=== PATIENT | male | born 1940 | race Two or more races ===

== ENCOUNTER 2016-08-12 11:56 | Inpatient (IN) | payer MEDICAID, OTHER ==
[~2016-08-12] VITALS: Ht 172.7 cm; Wt 91.7 kg
[~2016-08-12 11:56] MED LIST: ALLO100T PO; AML5T PO; ASPI81CH43 PO; CIPR-217 PO; CLO01T PO; CLOP75TA28 PO; GLIP-115 PO; OMEP20CA5 PO; PRAV20TA3 PO; PROP60CA8 PO; SODB650T PO
[2016-08-12] MEDS ORDERED: ONDANSETRON HCL 4 MG/2 ML VIAL IV ONE (12:30)
[2016-08-12] MEDS ORDERED: MORPHINE SULFATE 4 MG/ML SYRG IV ONE (12:30)
[2016-08-12 13:04] LABS: Basophils # (auto) 0 uL; Basophils % (auto) 0.5 % (0.0-2.0); Eosinophils # (auto) 0.3 uL; Eosinophils % (auto) 4.6 % (0.0-7.0); Hematocrit 35.6 % (41.0-53.0); Hemoglobin 11.7 g/dL (13.5-17.5); Lymphocytes # (auto) 1.6 uL; Lymphocytes % (auto) 26.6 % (10.0-50.0); Mean Corpuscular Hemoglobin 31.8 pg (28.0-32.0); Mean Corpuscular Hgb Conc. 32.8 g/dL (32.0-36.0); Mean Corpuscular Volume 96.9 fL (80.0-100.0); Mean Platelet Volume 8.3 fL (7.4-10.4); Monocytes # (auto) 0.7 uL; Monocytes % (auto) 12.2 % (0.0-12.0); Neutrophils # (auto) 3.4 uL; Neutrophils % (auto) 56.1 % (37.0-80.0); Platelet Count (auto) 133 10^3/uL (140-450); Red Cell Distribution Width 15.2 % (11.6-16.0)
[2016-08-12 13:16] LABS: INR 1.05 (0.9-1.15); Partial Thromboplastin Time 27.4 sec (22.64-33.71); Prothrombin Time 10.8 sec (9.37-12.3)
[2016-08-12 13:30] LABS: Albumin 3.5 g/dL (3.4-5.0); BUN/Creatinine Ratio 4.5; Bilirubin, Total 0.7 mg/dL (0.2-1.0); Calcium 8.1 mg/dL (8.5-10.1); Potassium 4.4 mmol/L (3.5-5.1); Total Protein 7.9 g/dL (6.4-8.2)
[2016-08-12 13:58] LABS: B-Type Natriuretic Peptide 1535.05 pg/mL (0-100); Temperature: 22.4 C (20.0-25.0)
[2016-08-12] MEDS ORDERED: ENOXAPARIN SOD 100 MG/1 ML SYRINGE SC ONE (14:30)
[2016-08-12] MEDS ORDERED: CLOPIDOGREL BISULFATE 75 MG TAB PO ONE (15:45)
[2016-08-12] MEDS ORDERED: METOPROLOL TARTRATE 50 MG TAB PO ONE (15:45)
[2016-08-12] MEDS ORDERED: NITROGLYCERIN 0.4 MG SL TAB SL PRN (15:45)
[2016-08-12] MEDS ORDERED: MORPHINE SULF INJ 2 MG/ML SYRINGE 1ML IV PRN (15:45)
[2016-08-12] MEDS ORDERED: ASPirin 81 mg TAB PO ONE (15:45)
[2016-08-12] MEDS ORDERED: PANTOPRAZOLE 40 MG TAB PO ONE (16:00)
[2016-08-12] MEDS ORDERED: ALLOPURINOL 100 MG TAB PO ONE (16:00)
[2016-08-12] MEDS ORDERED: B-COMPLEX W/ C & FOLIC ACID(NEPHROVITE TAB) PO ONE (16:00)
[2016-08-12] MEDS ORDERED: LABETALOL HCL 5 MG/ML 4ML SYRINGE IV PRN (16:00)
[2016-08-12] MEDS: cloNIDine HCL 0.1 MG TAB PO SCH (22:49)
[2016-08-12] MEDS: ATORVASTATIN 20 MG TAB PO SCH (22:49)
[2016-08-12] MEDS: METOPROLOL TARTRATE 50 MG TAB PO SCH (22:49)
[2016-08-13] VITALS (7 sets, daily range): BP systolic 123–155; BP diastolic 71–105
[2016-08-13 06:26] LABS: Cholesterol 112 mg/dL (<200); HDL Cholesterol 33 mg/dL (40-59); LDL Cholesterol 64 mg/dL (<100); Triglycerides 153 mg/dL (<150)
[2016-08-13] MEDS ORDERED: ENOXAPARIN SOD 100 MG/1 ML SYRINGE SC SCH (10:00)
[2016-08-13] MEDS ORDERED: B-COMPLEX W/ C & FOLIC ACID(NEPHROVITE TAB) PO SCH (10:00)
[2016-08-13] MEDS ORDERED: ASPirin 81 mg TAB PO SCH (10:00)
[2016-08-13] MEDS ORDERED: CLOPIDOGREL BISULFATE 75 MG TAB PO SCH (10:00)
[2016-08-13] MEDS ORDERED: PANTOPRAZOLE 40 MG TAB PO SCH (10:00)
[2016-08-13] MEDS ORDERED: ALLOPURINOL 100 MG TAB PO SCH (10:00)
[2016-08-13] MEDS: cloNIDine HCL 0.1 MG TAB PO SCH ×2 (10:16→21:47)
[2016-08-13] MEDS: METOPROLOL TARTRATE 50 MG TAB PO SCH ×2 (10:17→21:47)
[2016-08-13] MEDS ORDERED: LISINOPRIL 5 MG TAB PO ONE (12:45)
[2016-08-13] MEDS ORDERED: FUROSEMIDE 40 MG/4 ML VIAL IV ONE (17:30)
[2016-08-13] MEDS: ATORVASTATIN 20 MG TAB PO SCH (21:47)
[2016-08-14 05:00] VITALS: BP 123/76
[2016-08-14 08:28] VITALS: BP 149/86
[2016-08-14] MEDS ORDERED: LISINOPRIL 5 MG TAB PO SCH (10:00)
== END 2016-08-14 09:30 | disposition home or self-care (01) | DRG 280 ==
LOC: EDBD 11:56 → EDUNIT# 11:56 → ER 11:58 → TELE 11:59 → TELE-WESTW 23:51
PROVIDERS: ADMIT Internal Medicine; ATTEND Family Medicine
DX: I21.4 Non-ST elevation (NSTEMI) myocardial infarction (principal); N18.6 End stage renal disease; I50.33 Acute on chronic diastolic (congestive) heart failure; I13.2 Hypertensive heart and chronic kidney disease with heart failure and with stage 5 chronic kidney disease, or end stage renal disease; E11.22 Type 2 diabetes mellitus with diabetic chronic kidney disease; E78.5 Hyperlipidemia, unspecified; I25.10 Atherosclerotic heart disease of native coronary artery without angina pectoris; I48.91 Unspecified atrial fibrillation; F32.9 Major depressive disorder, single episode, unspecified; I48.0 Paroxysmal atrial fibrillation; I50.9 Heart failure, unspecified; Z95.1 Presence of aortocoronary bypass graft; Z99.2 Dependence on renal dialysis; Z95.5 Presence of coronary angioplasty implant and graft
CPT/HCPCS: 36415; 71010; 80053; 80061; 83036; 83880; 84443; 84484; 85025; 85610; 85730; 87081; 93005; 93306; 96372; 96374

== ENCOUNTER 2016-08-26 08:35 | Inpatient (IN) | payer OTHER ==
[~2016-08-26] VITALS: Ht 172.7 cm; Wt 89.6 kg
[~2016-08-26 08:35] MED LIST changes: -CIPR-217 PO; -GLIP-115 PO
[2016-08-26 09:32] LABS: Basophils # (auto) 0 uL; Basophils % (auto) 0.7 % (0.0-2.0); Eosinophils # (auto) 0.1 uL; Eosinophils % (auto) 2.1 % (0.0-7.0); Hematocrit 32.2 % (41.0-53.0); Hemoglobin 10.5 g/dL (13.5-17.5); Mean Corpuscular Hemoglobin 32.1 pg (28.0-32.0); Mean Corpuscular Hgb Conc. 32.5 g/dL (32.0-36.0); Mean Corpuscular Volume 98.6 fL (80.0-100.0); Mean Platelet Volume 8.9 fL (7.4-10.4); Monocytes # (auto) 0.7 uL; Monocytes % (auto) 11.7 % (0.0-12.0); Neutrophils # (auto) 3.4 uL; Neutrophils % (auto) 54.5 % (37.0-80.0); Platelet Count (auto) 187 10^3/uL (140-450); SUSPECT VIEW TRANSMISSION; White Blood Cell 6.3 10^3/uL (4.4-10.8)
[2016-08-26 09:49] LABS: INR 1.08 (0.9-1.15); Prothrombin Time 11.1 sec (9.37-12.3)
[2016-08-26 09:53] LABS: Albumin 3.6 g/dL (3.4-5.0); Bilirubin, Total 0.8 mg/dL (0.2-1.0); Calcium 8.6 mg/dL (8.5-10.1); Magnesium 2.2 mg/dL (1.6-2.6); Potassium 3.6 mmol/L (3.5-5.1); Total Protein 7.5 g/dL (6.4-8.2)
[2016-08-26 10:10] LABS: B-Type Natriuretic Peptide 1871.95 pg/mL (0-100); Temperature: 21.9 C (20.0-25.0)
[2016-08-26] MEDS ORDERED: DEXTROSE (50%) 50ML SYRG IV PRN (14:00)
[2016-08-26] MEDS ORDERED: cloNIDine HCL 0.1 MG TAB PO PRN (14:00)
[2016-08-26] MEDS ORDERED: CLOPIDOGREL BISULFATE 75 MG TAB PO ONE (14:15)
[2016-08-26] MEDS ORDERED: NITROGLYCERIN 0.4 MG SL TAB SL PRN (14:15)
[2016-08-26] MEDS ORDERED: ACETAMINOPHEN 325 MG TAB PO PRN (14:15)
[2016-08-26] MEDS ORDERED: ASPirin-EC 325mg tab PO ONE (14:15)
[2016-08-26] MEDS ORDERED: ALLOPURINOL 100 MG TAB PO ONE (14:15)
[2016-08-26] MEDS ORDERED: MORPHINE SULF INJ 2 MG/ML SYRINGE 1ML IV PRN ×2 (14:15)
[2016-08-26] MEDS ORDERED: B-COMPLEX W/ C & FOLIC ACID(NEPHROVITE TAB) PO ONE (14:15)
[2016-08-26] MEDS ORDERED: DOCUSATE SOD 100 MG CAP PO PRN (14:15)
[2016-08-26] MEDS ORDERED: ONDANSETRON HCL 4 MG/2 ML VIAL IV PRN (14:15)
[2016-08-26] MEDS ORDERED: HYDROcodone-ACET 5/325MG TAB PO PRN (14:15)
[2016-08-26] MEDS ORDERED: TEMAZEPAM 15 MG CAP PO PRN (14:15)
[2016-08-26] MEDS ORDERED: NIFEdipine ER 30 MG TAB PO ONE (14:15)
[2016-08-26] MEDS: SODIUM BICARBONATE 650 MG TAB PO SCH ×2 (14:27→22:19)
[2016-08-26] MEDS: FAMOTIDINE 20 MG TAB PO SCH (14:27)
[2016-08-26] MEDS ORDERED: MULTIPLE VITAMIN TAB PO ONE (14:30)
[2016-08-26] MEDS ORDERED: LISINOPRIL 10 MG TAB PO ONE (14:30)
[2016-08-26 17:00] VITALS: BP 165/86
[2016-08-26] MEDS: ACCU-CHEK COMFORT CURVE STRIP VI SCH ×2 (17:00→22:21)
[2016-08-26] MEDS: InsuLIN REG 1unit/0.01ml Soln (100units/ml) SC SCH ×2 (17:00→22:00)
[2016-08-26] MEDS ORDERED: LISI10TA6 (17:06)
[2016-08-26] MEDS ORDERED: NIFE30TA70 (17:06)
[2016-08-26] MEDS ORDERED: FUR20T (17:06)
[2016-08-26] MEDS: SEVELAMER 800 MG TAB PO SCH (17:28)
[2016-08-26] MEDS: FUROSEMIDE 20 MG TAB PO SCH (17:29)
[2016-08-26] MEDS: CALCIUM ACETATE 667 MG CAP PO SCH (17:30)
[2016-08-26 22:00] VITALS: BP 151/71
[2016-08-26] MEDS ORDERED: PRAVASTATIN SODIUM 20 MG TAB PO SCH (22:00)
[2016-08-26] MEDS: SODIUM CHLOR 0.9% PF (SALINE LOCK) 10ML VIAL IV SCH (22:19)
[2016-08-26] MEDS: METOPROLOL TARTRATE 25 MG TAB PO SCH (22:20)
[2016-08-26] MEDS: guaiFENesin-DEXTROMETHORPHAN 5ML SYR GT PRN (22:26)
[2016-08-27 05:30] VITALS: BP 137/75
[2016-08-27] MEDS: SODIUM CHLOR 0.9% PF (SALINE LOCK) 10ML VIAL IV SCH ×2 (05:33→17:35)
[2016-08-27] MEDS: FUROSEMIDE 20 MG TAB PO SCH (05:33)
[2016-08-27] MEDS: SODIUM BICARBONATE 650 MG TAB PO SCH ×2 (05:33→17:35)
[2016-08-27 05:39] LABS: Basophils # (auto) 0 uL; Basophils % (auto) 0.5 % (0.0-2.0); Eosinophils # (auto) 0.2 uL; Eosinophils % (auto) 2.6 % (0.0-7.0); Hematocrit 31.6 % (41.0-53.0); Hemoglobin 10.2 g/dL (13.5-17.5); Lymphocytes # (auto) 1.9 uL; Lymphocytes % (auto) 27.5 % (10.0-50.0); Mean Corpuscular Hemoglobin 32.2 pg (28.0-32.0); Mean Corpuscular Hgb Conc. 32.3 g/dL (32.0-36.0); Mean Corpuscular Volume 99.7 fL (80.0-100.0); Mean Platelet Volume 9.4 fL (7.4-10.4); Monocytes # (auto) 0.9 uL; Monocytes % (auto) 12.6 % (0.0-12.0); Neutrophils # (auto) 3.9 uL; Neutrophils % (auto) 56.8 % (37.0-80.0); Platelet Count (auto) 167 10^3/uL (140-450); Red Cell Distribution Width 16.1 % (11.6-16.0); White Blood Cell 6.9 10^3/uL (4.4-10.8)
[2016-08-27 05:51] LABS: Urine RBC None Seen /hpf (0 - 3)
[2016-08-27 05:58] LABS: Urine Bilirubin Negative (Negative); Urine Blood Negative /uL (Negative); Urine Color Yellow (Yellow); Urine Ketone Negative (Negative); Urine Nitrite Negative (Negative); Urine Urobilinogen Normal (Negative); Urine pH 8.5 (5.0-8.0)
[2016-08-27 05:59] LABS: Urine Glucose 1+ mg/dL (Normal)
[2016-08-27 06:21] LABS: Potassium 4.6 mmol/L (3.5-5.1)
[2016-08-27 06:27] LABS: Albumin 3.2 g/dL (3.4-5.0); BUN/Creatinine Ratio 5.4; Calcium 7.8 mg/dL (8.5-10.1)
[2016-08-27 06:30] LABS: Bilirubin, Total 0.7 mg/dL (0.2-1.0)
[2016-08-27] MEDS: InsuLIN REG 1unit/0.01ml Soln (100units/ml) SC SCH ×3 (07:00→17:36)
[2016-08-27] MEDS: ACCU-CHEK COMFORT CURVE STRIP VI SCH ×3 (07:00→17:36)
[2016-08-27] MEDS: SEVELAMER 800 MG TAB PO SCH ×2 (08:14→11:52)
[2016-08-27] MEDS: CALCIUM ACETATE 667 MG CAP PO SCH ×2 (08:14→11:53)
[2016-08-27] MEDS: FAMOTIDINE 20 MG TAB PO SCH (08:17)
[2016-08-27] MEDS: METOPROLOL TARTRATE 25 MG TAB PO SCH (08:26)
[2016-08-27 09:00] VITALS: BP 155/77
[2016-08-27] MEDS ORDERED: LISINOPRIL 10 MG TAB PO ONE (09:45)
[2016-08-27] MEDS ORDERED: B-COMPLEX W/ C & FOLIC ACID(NEPHROVITE TAB) PO SCH (10:00)
[2016-08-27] MEDS ORDERED: CLOPIDOGREL BISULFATE 75 MG TAB PO SCH (10:00)
[2016-08-27] MEDS ORDERED: MULTIPLE VITAMIN TAB PO SCH (10:00)
[2016-08-27] MEDS ORDERED: ASPirin-EC 325mg tab PO SCH (10:00)
[2016-08-27] MEDS ORDERED: LISINOPRIL 10 MG TAB PO SCH (10:00)
[2016-08-27] MEDS ORDERED: ALLOPURINOL 100 MG TAB PO SCH (10:00)
[2016-08-27] MEDS ORDERED: NIFEdipine ER 30 MG TAB PO SCH ×2 (10:00)
[2016-08-27] MEDS: guaiFENesin-DEXTROMETHORPHAN 5ML SYR GT PRN (11:53)
[2016-08-27 12:57] VITALS: BP 168/86
[2016-08-27 14:59] VITALS: BP 160/80
[2016-08-28] MEDS ORDERED: LISINOPRIL 20 MG TAB PO SCH (10:00)
== END 2016-08-27 18:50 | disposition home health service (06) | DRG 291 ==
LOC: EDUNIT# 08:35 → ER 08:44 → TELE 08:45 → TELE-E-ADS 15:30 → TELE-WESTW 17:41
PROVIDERS: ADMIT Internal Medicine; ATTEND Internal Medicine Geriatric Medicine
DX: I13.0 Hypertensive heart and chronic kidney disease with heart failure and stage 1 through stage 4 chronic kidney disease, or unspecified chronic kidney disease (principal); I50.33 Acute on chronic diastolic (congestive) heart failure; J96.01 Acute respiratory failure with hypoxia; N18.6 End stage renal disease; D68.69 Other thrombophilia; I48.92 Unspecified atrial flutter; D63.1 Anemia in chronic kidney disease; E11.21 Type 2 diabetes mellitus with diabetic nephropathy; E11.40 Type 2 diabetes mellitus with diabetic neuropathy, unspecified; E87.8 Other disorders of electrolyte and fluid balance, not elsewhere classified; E21.3 Hyperparathyroidism, unspecified; E11.22 Type 2 diabetes mellitus with diabetic chronic kidney disease; K80.20 Calculus of gallbladder without cholecystitis without obstruction; E78.5 Hyperlipidemia, unspecified; F32.9 Major depressive disorder, single episode, unspecified; I48.91 Unspecified atrial fibrillation; I25.10 Atherosclerotic heart disease of native coronary artery without angina pectoris; I25.2 Old myocardial infarction; Z99.2 Dependence on renal dialysis; Z95.5 Presence of coronary angioplasty implant and graft; Z95.1 Presence of aortocoronary bypass graft; Z83.3 Family history of diabetes mellitus; Z82.49 Family history of ischemic heart disease and other diseases of the circulatory system
CPT/HCPCS: 36415; 71010; 80053; 81001; 82962; 83036; 83735; 83880; 84484; 85025; 85049; 85379; 85610; 85730; 93005; 93970; 94761

== ENCOUNTER 2016-11-10 22:02 | Emergency (ER) | payer OTHER ==
[~2016-11-10] VITALS: Ht 172.7 cm; Wt 84.4 kg
[~2016-11-10 22:02] MED LIST changes: -AML5T PO; +B-COTAB10 OR; +CHOL20007 OR; -CLO01T PO; +LISI10TA6; +NIFE90TA30 PO; -PROP60CA8 PO
[2016-11-10 22:48] LABS: Basophils # (auto) 0.1 uL; Eosinophils # (auto) 0.1 uL; Eosinophils % (auto) 1.5 % (0.0-7.0); Hematocrit 38.8 % (41.0-53.0); Hemoglobin 12.8 g/dL (13.5-17.5); Lymphocytes # (auto) 2.3 uL; Lymphocytes % (auto) 26.2 % (10.0-50.0); Mean Corpuscular Hemoglobin 32.8 pg (28.0-32.0); Mean Corpuscular Volume 99.4 fL (80.0-100.0); Monocytes # (auto) 1.1 uL; Monocytes % (auto) 12.8 % (0.0-12.0); Neutrophils # (auto) 5.1 uL; Neutrophils % (auto) 58.5 % (37.0-80.0); Platelet Count (auto) 247 10^3/uL (140-450); Red Cell Distribution Width 15.1 % (11.6-16.0); White Blood Cell 8.8 10^3/uL (4.4-10.8)
[2016-11-10 23:06] LABS: Albumin 3.9 g/dL (3.4-5.0); BUN/Creatinine Ratio 4.6; Calcium 8.9 mg/dL (8.5-10.1)
[2016-11-10 23:08] LABS: Bilirubin, Total 0.8 mg/dL (0.2-1.0); Total Protein 8.3 g/dL (6.4-8.2)
[2016-11-11 01:30] VITALS: BP 141/72
== END 2016-11-11 01:49 | disposition home or self-care (01) ==
LOC: EDBD 22:02 → ER 22:02
DX: S16.1XXA Strain of muscle, fascia and tendon at neck level, initial encounter (principal); R51 Headache; M54.9 Dorsalgia, unspecified; E11.9 Type 2 diabetes mellitus without complications; K21.9 Gastro-esophageal reflux disease without esophagitis; E78.5 Hyperlipidemia, unspecified; I10 Essential (primary) hypertension; I25.2 Old myocardial infarction; M10.9 Gout, unspecified; I25.810 Atherosclerosis of coronary artery bypass graft(s) without angina pectoris; Z95.1 Presence of aortocoronary bypass graft; Z88.8 Allergy status to other drugs, medicaments and biological substances; W01.0XXA Fall on same level from slipping, tripping and stumbling without subsequent striking against object, initial encounter; Y93.01 Activity, walking, marching and hiking; Y99.8 Other external cause status; Y92.89 Other specified places as the place of occurrence of the external cause
CPT/HCPCS: 36415; 70450; 72125; 80053; 85025